=== PATIENT | male | born 1955 | race Caucasian/White ===

== ENCOUNTER 2017-04-29 09:32 | Inpatient (IN) | payer BC ==
[~2017-04-29] VITALS: Ht 165.1 cm; Wt 117.9 kg
--- NOTE | 2017-04-29 09:35 | NUR ---
BIBRA 89 C/O NON-RADIATING MIDSTERNAL CP 5/10 PAIN, ASA 162MG AND 2 NITRO GIVEN IN THE FIELD, PAIN FREE AT THIS TIME. A/OX 4. BREATHING EVEN AND UNLABORED. NO SOB, NAD. SKIN WARM AND DRY. VITALS STABLE. SAFETY AND COMFORT MEASURES IN PLACE. IV INTACT ON LFA, 20 G FROM FIELD. AWAITING MD ORDERS.
--- NOTE | 2017-04-29 09:58 | NUR ---
AT BEDSIDE FOR EVAL.
[2017-04-29 10:11] LABS: BASOPHILS # (AUTO) 0.1 /CMM (0.0-0.2); BASOPHILS % (AUTO) 0.8 % (0.0-2.0); EOSINOPHILS # (AUTO) 0.2 /CMM (0.0-0.7); EOSINOPHILS % (AUTO) 3.3 % (0.0-6.0); HEMATOCRIT 43 % (39-51); HEMOGLOBIN 14.2 g/dL (13.5-17.5); LYMPHOCYTES # (AUTO) 1.2 /CMM (0.8-4.8); LYMPHOCYTES % (AUTO) 18.2 % (20.0-44.0); MEAN CORPUSCULAR HEMOGLOBIN 24 PG (26.0-33.0); MEAN CORPUSCULAR HGB CONC 33 g/dl (31.0-36.0); MEAN CORPUSCULAR VOLUME 74 fL (80-96); MONOCYTES # (AUTO) 0.5 /CMM (0.1-1.30); MONOCYTES % (AUTO) 7.8 % (2.0-12.0); NEUTROPHILS # (AUTO) 4.6 /CMM (1.8-8.9); NEUTROPHILS % (AUTO) 69.9 % (43.0-81.0); PLATELET COUNT (AUTO) 300 /CMM (150-450); RDW COEFFICIENT OF VARIATION 14.9 (11.5-15.0); RED BLOOD CELL COUNT(AUTO) 5.81 MIL/uL (4.5-6.0); WHITE BLOOD COUNT (AUTO) 6.6 K/uL (4.3-11.0)
[2017-04-29 10:20] LABS: CALCIUM, SERUM 8.7 mg/dL (8.5-10.1); CARBON DIOXIDE 33 mmol/L (21-32); CHLORIDE 103 mmol/L (98-107); CREATININE 0.9 mg/dL (0.6-1.3); GLUCOSE 203 mg/dL (74-106); POTASSIUM 3.7 mmol/L (3.5-5.1); SODIUM SERUM 138 mmol/L (136-145); UREA NITROGEN, BLOOD 17 mg/dL (7-18)
[2017-04-29 10:25] LABS: INR 0.93 (0.85-1.15)
[2017-04-29 10:26] LABS: ALANINE AMINOTRANSFERASE 31 U/L (12-78); ALBUMIN 3.2 g/dL (3.4-5.0); ALKALINE PHOSPHATASE 97 U/L (46-116); ASPARTATE AMINOTRANSFERASE 19 U/L (15-37); BILIRUBIN,DIRECT 0.1 mg/dL (0.0-0.2); BILIRUBIN,TOTAL 0.4 mg/dL (0.2-1.0); TOTAL PROTEIN, SERUM 7.1 g/dL (6.4-8.2)
[2017-04-29 10:28] LABS: TROPONIN I < 0.017 ng/mL (0.00-0.056)
--- NOTE | 2017-04-29 10:28 | NUR ---
ASIAN STUDIES PROGRAM CHAIR AT BEDSIDE.
[2017-04-29] MEDS ORDERED: ASPIRIN 81 MG TAB.CHEW PO ONE (10:30)
[2017-04-29] MEDS ORDERED: ASPIRIN 81 MG TAB.CHEW ONE (10:30)
--- NOTE | 2017-04-29 12:12 | NUR ---
PANEL WAS PAGED AT [phone]
[2017-04-29] MEDS ORDERED: TRIA1TAB3 PO (12:42)
[2017-04-29] MEDS ORDERED: OMEP20CA10 PO (12:42)
[2017-04-29] MEDS ORDERED: SIMV20TA6 PO (12:42)
[2017-04-29] MEDS ORDERED: ASPI-1169 PO (12:42)
[2017-04-29] MEDS ORDERED: LISI-603 PO (12:42)
[2017-04-29] MEDS ORDERED: METF10002 PO (12:42)
[2017-04-29] MEDS ORDERED: GLIP-217 PO (12:42)
[2017-04-29] MEDS ORDERED: METO-357 PO (13:18)
[2017-04-29] MEDS ORDERED: METOPROLOL TARTRATE INJ 5 MG/5 ML AMPUL IV ONE (13:30)
[2017-04-29] MEDS ORDERED: METOPROLOL TARTRATE INJ 5 MG/5 ML AMPUL ONE (13:31)
--- NOTE | 2017-04-29 13:46 | NUR ---
REPORT GIVEN TO JIADA STOVER FOR ISH UPON ADMISSION.
--- NOTE | 2017-04-29 14:22 | NUR ---
PATIENT TRANSPORTED TO [facility] VIA ACLS PROTOCOL. RNJAIDA TO PROVIDE ISH.
--- NOTE | 2017-04-29 14:35 | NUR ---
[employer] MACHINE OPERATOR OPENING NOTES. PT RECEIVED A&0X3, TOLERATING ROOM AIR AND DENIES SOB, SAO2 WNL. PT DENIES PAIN AT THIS TIME. PT WITH IVC AT L FA G#20 INTACT AND SALINE FLUSH PATENT. PT TELE MONITORING COMMENCED WITH SR 80. PT SKIN INTACT. PT WITH ALL BELONGINGS. PT BRIEFED ON TODAY'S POC, CALL [place] SYSTEM, BED ETC. PT COMFORTABLE AND WITHOUT CONCERN OR COMPLAINT. AWAITING ORDERS.
[2017-04-29 14:40] VITALS: BP 146/81
[2017-04-29] MEDS ORDERED: ENOXAPARIN SODIUM 40 MG/0.4 ML DISP.SYRIN SQ SCH ×2 (17:00→17:29)
[2017-04-29] MEDS ORDERED: ONDANSETRON HCL/PF 4 MG/2 ML VIAL IVP PRN (17:00)
[2017-04-29] MEDS ORDERED: ZOLPIDEM TARTRATE 5 MG TABLET PO PRN (17:00)
[2017-04-29] MEDS ORDERED: ACETAMINOPHEN 325 MG TABLET PO PRN (17:00)
--- NOTE | 2017-04-29 17:00 | NUR ---
MSRN NOTES- PT REPORTING EPIGASTRIC CHEST PAIN, TINGLING IN HANDS AND DIAPHORESIS. PT BP 175/115 HR 85 TELE SR AND DENIES SOB. 1 EPISODE OF VOMITING WHICH RELIEVED SUDDN ONSET NAUSEA. PRN ZOFRAN ADMINISTERED. MD PARKER INFORMED AND REQUESTING NORVASC 10MG AND DIOVAN 160MG PO STAT, ORDERS PLACED AND ADMINISTERED.
[2017-04-29] MEDS: METFORMIN 500 MG TABLET PO SCH (17:26)
[2017-04-29] MEDS ORDERED: HYDROMORPHONE INJ 0.5 MG/0.5 ML SYRINGE IV PRN (17:30)
[2017-04-29] MEDS ORDERED: SIMVASTATIN 20 MG TABLET PO SCH (18:00)
--- NOTE | 2017-04-29 18:11 | NUR ---
HEAD OF SALES CLOSING NOTES. PT A&0X3, TOLERATING ROOM AIR AND DENIES PAIN OR DISCOMFORT. PT TELE SR 85. PT WITH IVC AT L FA G#20 INTACT AND SL. SISTER AT BEDSIDE. PT BED IN LOWEST LOCKED POSITION WITH HANDRAILSX2 AND CALL HA[place]NE WITHIN REACH. ALL DAY NURSE DUTIES ATTENDED TO AND PT IS WITHOUT CONCERN OR COMPLAINT AT THIS TIME. WILL ENDORSE TO NIGHT NURSE AT BEDSIDE.
[2017-04-29] MEDS ORDERED: VALSARTAN 80 MG TABLET PO STA (18:55)
[2017-04-29] MEDS ORDERED: AMLODIPINE BESYLATE 10 MG TABLET PO STA (18:55)
--- NOTE | 2017-04-29 19:30 | NUR ---
BELLY DUMP DRIVER NOTES RECEIVED PT IN BED, AWAKE, A & 0X3, VERBALLY RESPONSIVE. NO DISTRESS NOR SOB NOTED. DENIES PAIN OR DISCOMFORT. PT ON TELE MONITOR, SR 90. IV SITE ON LFA G#20 INTACT AND PATENT, NO S/S OF INFILTRATION NOTED. NO S/S OF HYPO/ HYPERGLYCEMIA AT THIS TIME. PT BED IN LOWEST LOCKED POSITION WITH HAND RAILS X2 AND CALL LIGHT WITHIN REACH. ALL NEEDS ATTENDED AND MET, KEPT COMFORTABLE. WILL CONTINUE TO MONITOR.
[2017-04-29 19:38] VITALS: BP 175/118
[2017-04-29 20:00] VITALS: BP 148/84
--- NOTE | 2017-04-29 21:43 | NUR ---
PT IS ON CARDIAC DIET, WITH NO S/S OF HYPO/ HYPERGLYCEMIA NOTED. WILL CONT TO MONITOR.
--- NOTE | 2017-04-29 21:43 | NUR ---
CHECKED PT'S BLOOD SUGAR PER PT'S REQUEST , BS : 156 AT THIS TIME. WILL CONT TO MONITOR AND ENDORSE TO NEXT SHIFT FOR ISH
[2017-04-30] VITALS: BP 142/81
[2017-04-30 04:00] VITALS: BP_SYST 144; BP_SYST 156; BP_DIAS 89
[2017-04-30 06:10] LABS: BASOPHILS % (AUTO) 0.3 % (0.0-2.0); EOSINOPHILS # (AUTO) 0.1 /CMM (0.0-0.7); EOSINOPHILS % (AUTO) 1.9 % (0.0-6.0); HEMATOCRIT 41 % (39-51); HEMOGLOBIN 13.6 g/dL (13.5-17.5); LYMPHOCYTES # (AUTO) 1.4 /CMM (0.8-4.8); MEAN CORPUSCULAR HEMOGLOBIN 25 PG (26.0-33.0); MEAN CORPUSCULAR HGB CONC 33 g/dl (31.0-36.0); MEAN CORPUSCULAR VOLUME 76 fL (80-96); MONOCYTES # (AUTO) 0.7 /CMM (0.1-1.30); MONOCYTES % (AUTO) 8.6 % (2.0-12.0); NEUTROPHILS # (AUTO) 5.6 /CMM (1.8-8.9); NEUTROPHILS % (AUTO) 71.2 % (43.0-81.0); PLATELET COUNT (AUTO) 275 /CMM (150-450); RDW COEFFICIENT OF VARIATION 15.9 (11.5-15.0); WHITE BLOOD COUNT (AUTO) 7.8 K/uL (4.3-11.0)
--- NOTE | 2017-04-30 06:24 | NUR ---
PT REQUESTED FOR HIS BS TO BE CHECKED, BS : 160 AT THIS TIME, PT WITH NO S/S OF HYPO/ HYPERGLYCEMIA NOTE. WILL ENDORSE TO NEXT SHIFT FOR ISH.
[2017-04-30 06:30] LABS: ALBUMIN 2.9 g/dL (3.4-5.0); BILIRUBIN,TOTAL 0.5 mg/dL (0.2-1.0); CALCIUM, SERUM 9.1 mg/dL (8.5-10.1); CREATININE 0.8 mg/dL (0.6-1.3); MAGNESIUM 1.9 mg/dL (1.8-2.4); PHOSPHORUS 4.3 mg/dL (2.5-4.9); POTASSIUM 3.8 mmol/L (3.5-5.1); TOTAL PROTEIN, SERUM 6.5 g/dL (6.4-8.2)
--- NOTE | 2017-04-30 06:47 | NUR ---
AUDIOMETRIST NOTES PT IN BED, AWAKE, A & 0X3, VERBALLY RESPONSIVE. NO DISTRESS NOR SOB NOTED. DENIES PAIN OR DISCOMFORT. PT ON TELE MONITOR, SR 94. IV SITE ON LFA G#20 INTACT AND PATENT, NO S/S OF INFILTRATION NOTED. NO S/S OF HYPO/ HYPERGLYCEMIA AT THIS TIME. PT IS AMBULATORY. PT BED IN LOWEST LOCKED POSITION WITH HAND RAILS X2 AND CALL LIGHT WITHIN REACH. ALL NEEDS ATTENDED AND MET, KEPT COMFORTABLE. WILL ENDORSE TO NEXT SHIFT FOR ISH. .
[2017-04-30] MEDS ORDERED: PANTOPRAZOLE 40 MG TABLET.DR PO SCH (07:30)
--- NOTE | 2017-04-30 07:33 | NUR ---
MANAGER DIABETES NOTES RECEIVED PATIENT IN BED ASLEEP, A & 0X3, VERBALLY RESPONSIVE. NO ACUTE DISTRESS, NO SOB. DENIES PAIN OR DISCOMFORT. PATIENT ON TELE MONITOR, SR 88. IV SITE ON LFA G#20 INTACT AND PATENT, NO S/S OF INFILTRATION NOTED. NO S/S OF HYPO/ HYPERGLYCEMIA AT THIS TIME. BED IN LOWEST LOCKED POSITION WITH HAND RAILS X2 AND CALL LIGHT WITHIN REACH. KEPT PATIENT SAFE AND COMFORTABLE. WILL CONTINUE TO MONITOR ACCORDINGLY.
[2017-04-30 08:00] VITALS: BP 112/67
[2017-04-30] MEDS ORDERED: REGADENOSON 0.4 MG/5 ML DISP.SYRIN IVP ONE (08:00)
--- NOTE | 2017-04-30 08:45 | NUR ---
RN NOTES WENT DOWN FOR STRESS TEST ACCOMPANIED BY AQUATIC INSTRUCTOR VIA WHEELCHAIR.
[2017-04-30] MEDS ORDERED: LISINOPRIL (20MG) 20 MG TABLET PO SCH (09:00)
[2017-04-30] MEDS ORDERED: glipiZIDE XL 10 MG TAB.OSM.24 PO SCH (09:00)
[2017-04-30] MEDS ORDERED: TRIAMTERENE/HYDROCHLOROTHIAZID (37.5/25MG) 1 UDCAP PO SCH (09:00)
[2017-04-30] MEDS ORDERED: ASPIRIN 81 MG TAB.CHEW PO SCH (09:00)
[2017-04-30] MEDS ORDERED: METOPROLOL SUCCINATE 50 MG TAB.SR.24H PO SCH (09:00)
[2017-04-30] MEDS: METFORMIN 500 MG TABLET PO SCH (10:12)
[2017-04-30 10:14] VITALS: BP 112/67
--- NOTE | 2017-04-30 15:34 | NUR ---
MEDICAL AUDITOR NOTES DISCHARGED PATIENT IN STABLE CONDITION ACCOMPANIED BY CK OROPEZA. DISCHARGE INSTRUCTIONS GIVEN, VERBALIZED UNDERSTANDING, D/C PAPERWORK GIVEN. DISCONTINUED IV, APPLIED PRESSURE, NO BLEEDING, NO COMPLICATIONS NOTED. NAME BAND REMOVED. ALL BELONGINGS RETURNED, PATIENT SIGNED BELONGINGS FORM.
== END 2017-04-30 15:45 | disposition home or self-care (01) | DRG 392 ==
LOC: ER 09:34 → TELE 13:47 → MED 04-30 10:29
PROVIDERS: ADMIT Nurse Practitioner Acute Care; ATTEND Nurse Practitioner Acute Care
DX: K29.70 Gastritis, unspecified, without bleeding (principal); E66.01 Morbid (severe) obesity due to excess calories; I47.1 Supraventricular tachycardia; Z68.41 Body mass index [BMI] 40.0-44.9, adult; E11.9 Type 2 diabetes mellitus without complications; E78.5 Hyperlipidemia, unspecified; I10 Essential (primary) hypertension; K21.9 Gastro-esophageal reflux disease without esophagitis; Z79.82 Long term (current) use of aspirin; G47.33 Obstructive sleep apnea (adult) (pediatric); R71.8 Other abnormality of red blood cells
CPT/HCPCS: 36415; 71045-TC; 80048-TC; 80053-TC; 80061-TC; 80076-TC; 82962-TC; 83735-TC; 84100-TC; 84484-TC; 85025-TC; 85730-TC; 87081-TC; 93307-TC; A4606; A9502; J1650; J2405; J2785; J3490; Z7610

== ENCOUNTER 2024-10-19 16:19 | Emergency (ER) | payer BC ==
[~2024-10-19] VITALS: Ht 165.1 cm; Wt 115.7 kg
[~2024-10-19 16:19] MED LIST: ASPI-1169 PO; GLIP10TA21 PO; LISI20TA30 PO; METF-442 PO; METO-357 PO; OMEP20CA15 PO; SIMV-46 PO; TRIA1TAB3 PO
[2024-10-19] MEDS ORDERED: HYDR-3972 PO (19:13)
[2024-10-21 12:25] VITALS: BP 136/62; TEMP 98.2; O2SAT 98
== END 2024-10-20 13:05 | disposition home or self-care (01) ==
LOC: ER 16:25
DX: S82.832A Other fracture of upper and lower end of left fibula, initial encounter for closed fracture (principal); R07.89 Other chest pain; R07.81 Pleurodynia; E11.9 Type 2 diabetes mellitus without complications; I10 Essential (primary) hypertension; I48.91 Unspecified atrial fibrillation; Z79.82 Long term (current) use of aspirin; Z79.84 Long term (current) use of oral hypoglycemic drugs; Z79.899 Other long term (current) drug therapy; Z95.5 Presence of coronary angioplasty implant and graft; W01.0XXA Fall on same level from slipping, tripping and stumbling without subsequent striking against object, initial encounter; Y93.89 Activity, other specified; Y92.89 Other specified places as the place of occurrence of the external cause; Y99.8 Other external cause status
CPT/HCPCS: 71100-TC; 73590-TC; 73610-TC; 73630-TC